=== PATIENT | male | born 1945 | race Caucasian/White ===

== ENCOUNTER 2017-05-06 12:47 | Inpatient (IN) | payer MEDICARE, OTHER ==
[~2017-05-06] VITALS: Ht 170.2 cm; Wt 74.2 kg
[~2017-05-06 12:47] MED LIST: ALEVE 220MG220 MG PO; ASPIRIN E.C. 8181 MG PO; AVALIDE 12.5 MG1 TA1 PO; CARDIZEM CD360 MG PO; CIALIS2.5 MG PO; DOXYCYCLINE 10100 MG PO; FLOMAX 0.40.4 MG/CAP PO; LYCOPENE10 MG PO; MULTIPLE VITAMI1 CAP PO; VESICARE 5MG5 MG PO; VITAMIN C500 MG PO; ZINC50 M1 PO
[2017-06-30] VITALS (11 sets, daily range): BP systolic 116–147; BP diastolic 53–96; PULSE 48–79; TEMP 97–98.3
[2017-07-01] VITALS: BP 129/61; PULSE 68; TEMP 98.4
[2017-07-01 04:17] VITALS: BP 137/96; PULSE 98; TEMP 98.9
[2017-07-01 06:47] LABS: HEMATOCRIT 44.1 % (42.0-52.0); HEMOGLOBIN 15.2 g/dl (13.5-18.0)
[2017-07-01 07:23] VITALS: BP 149/94; PULSE 88; TEMP 99.1
[2017-07-01 12:00] VITALS: BP 137/99; PULSE 92; TEMP 99.2
[2017-07-01] MEDS ORDERED: ROXICODONE 55 MG/TAB PO (13:57)
[2017-07-01] MEDS ORDERED: NORCO 325 MG-7.1 TAB PO (13:58)
== END 2017-07-01 14:30 | disposition home or self-care (01) | DRG 470 ==
LOC: JCC 06-30 05:18
PROVIDERS: Orthopaedic Surgery
PROC: 0SRD0J9 Replacement of Left Knee Joint with Synthetic Substitute, Cemented, Open Approach (ICD-10-PCS; principal; 2017-06-30 07:30)
DX: M17.12 Unilateral primary osteoarthritis, left knee (principal); I10 Essential (primary) hypertension
CPT/HCPCS: A9284; C1713; C1776; J0690; J1100; J1885; J2250; J2270; J2405; J2704; J3010; J7120